=== PATIENT | female | born 1940 | race Caucasian/White ===

== ENCOUNTER 2017-05-17 16:33 | Emergency (ER) | payer MEDICARE ==
[2017-05-17] MEDS ORDERED: Amoxicillin-Clav 875-125 mg Tab PO STA (17:09)
--- NOTE | 2017-05-17 17:10 | C.PDOC ---
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 Patient states, she tripped outside by bank and fell forward hitting ground with face. Patient denies loc, syncope, headache , dizziness, visual changes, focal deficits, neck pain, CP, SOB, dyspnea, diaphoresis, palpitation, abd. pain, N/V, obvious deformity, weakness, sensory or vascular deficits to bilateral upper and lower extremities or any other complaints at this time. At present time, pt is awake, noted swelling, bruising to Left side of face, around eye. (Wanda Schmitz) <Marimar Sorto - Last Filed: 05/17/17 18:34> - HPI History Per: Patient History/Exam Limitations: no limitations Onset/Duration Of Symptoms: Days <Wanda Schmitz - Last Filed: 05/17/17 19:38> - HPI Time Seen by Provider: 05/17/17 16:58 Chief Complaint (Nursing): Trauma Past Medical History Reviewed: Historical Data, Nursing Documentation, Vital Signs - Medical History PMH: Diabetes, Hypothyroidism Family History: States: No Known Family Hx - Social History Hx Tobacco Use: No Hx Alcohol Use: No Hx Substance Use: No <Olga Schmitznika - Last Filed: 05/17/17 19:38> Vital Signs: Last Vital Signs Temp 97.9 F 05/17/17 18:17 Pulse 82 05/17/17 18:17 Resp 18 05/17/17 18:17 BP 138/94 H 05/17/17 18:17 Pulse Ox 98 05/17/17 18:31 Review Of Systems Except As Marked, All Systems Reviewed And Found Negative. Eyes: Negative for: Vision Change Musculoskeletal: Negative for: Neck Pain Skin: Negative for: Rash Neurological: Negative for: Weakness, Numbness <AinsleyWanda - Last Filed: 05/17/17 19:38> Physical Exam - Physical Exam Appears: Well, Non-toxic, No Acute Distress Skin: Warm, Dry, No Rash Head: Normacephalic, Other (left sided diffuse ecchymosis from infraorbital area extended to left zyngoma w/moderate edema. No open wound.) Eye(s): bilateral: Normal Inspection, PERRL, EOMI (no pain or limitation on extraocular movement B/L) Ear(s): Bilateral: Normal Nose: Normal, No Flaring, No Discharge Oral Mucosa: Moist, No Drooling, No Trismus Tongue: Normal Appearing, No Laceration Lips: Normal Appearing, No Laceration Throat: No Erythema, No Exudate, No Drooling Neck: Normal ROM, No Midline Cervical Tenderness, No Paracervical Tenderness, No Step Off Deformity, Supple Chest: Symmetrical, No Deformity, No Tenderness Cardiovascular: Rhythm Regular Respiratory: No Rales, No Rhonchi, No Stridor, No Wheezing Gastrointestinal/Abdominal: Soft, No Tenderness, No Guarding, No Rebound Back: No CVA Tenderness, No Vertebral Tenderness Extremity: Normal ROM, No Tenderness, Capillary Refill (<2 seconds), No Deformity, No Swelling Neurological/Psych: Oriented x3, Normal Speech, Normal Motor, Normal Sensation, Normal Reflexes <Wanda Schmitz - Last Filed: 05/17/17 19:38> ED Course And Treatment - CT Scan/US CT max/face w/o contrast CT/US Interpretation: PROCEDURE: CT MAXILLOFACIAL BONES WITHOUT CONTRAST. HISTORY: injury. COMPARISON: None. TECHNIQUE: Contiguous axial CT images of the maxillofacial bones were obtained. Coronal and sagittal reformats were generated. Radiation dose: Total exam DLP = 712.7 mGy-cm. This CT exam was performed using one or more of the following dose reduction techniques: Automated exposure control, adjustment of the mA and/or kV according to patient size, and/or use of iterative reconstruction technique. FINDINGS: NASAL BONES : Unremarkable. ORBITS: Unremarkable. PARANASAL SINUSES/ MASTOIDS: Mildly displaced fracture at the anterior lateral wall of the left maxillary sinus associated with partial opacification of the sinuses suggestive of hemorrhage. MAXILLA: Unremarkable. MANDIBLE/ TEMPOROMANDIBULAR JOINTS: Unremarkable. SKULL BASE: Unremarkable. TEMPORAL BONES: Middle ears and mastoid grossly unremarkable. OTHER FINDINGS: Soft tissue swelling and subcutaneous stranding with possible small seroma at the left cheek. IMPRESSION: Acute displaced fracture/ fractures at the anterior lateral wall of the left maxillary sinus associated with small hemorrhage. Posttraumatic soft tissue swelling seen at the left cheek. CT C-spine CT/US Interpretation: PROCEDURE: CT Cervical Spine without contrast. HISTORY: Injury. COMPARISON: None available. TECHNIQUE: Axial computed tomography images were obtained of the cervical spine without the use of intravenous contrast. Coronal and sagittal reformatted images were created and reviewed. Radiation dose: Total exam DLP = 524.2 mGy-cm. This CT exam was performed using one or more of the following dose reduction techniques: Automated exposure control, adjustment of the mA and/or kV according to patient size, and/ or use of iterative reconstruction technique. FINDINGS: VERTEBRAE: No fracture. Normal alignment. No destructive bony lesion. DISCS/SPINAL CANAL/ NEURAL FORAMINA: Moderate degenerative disc changes associated with posterior osteophyte formation more prominent at C5-C6 and C6-C7. Moderate to severe narrowing of the intervertebral disc at C6-C7. PARASPINAL SOFT TISSUES: Unremarkable. OTHER FINDINGS: None. IMPRESSION: No evidence of acute displaced fracture or subluxation of the cervical spine. Moderate degenerative disc changes more prominent at C5-C6 and C6-C7. Left maxillary sinus fracture associated with small hemorrhage in the sinus. CT head w/o contrast Other Rad Studies (CT/US): Interpreted By Me, Read By Radiologist CT/US Interpretation: PROCEDURE: CT HEAD WITHOUT CONTRAST. HISTORY: injury. COMPARISON: None available. TECHNIQUE: Axial computed tomography images were obtained through the head/brain without intravenous contrast. Radiation dose: Total exam DLP = 901.01 mGy-cm. This CT exam was performed using one or more of the following dose reduction techniques: Automated exposure control, adjustment of the mA and/or kV according to patient size, and/or use of iterative reconstruction technique. FINDINGS: HEMORRHAGE: No intracranial hemorrhage. BRAIN: No mass effect or edema. No atrophy or chronic microvascular ischemic changes. VENTRICLES: Unremarkable. No hydrocephalus. CALVARIUM: Unremarkable. PARANASAL SINUSES: Mucosal thickening and small air- fluid level at the left maxillary sinus. MASTOID AIR CELLS: Unremarkable as visualized. No inflammatory changes. OTHER FINDINGS: None. IMPRESSION: No evidence of acute intracranial hemorrhage intracranial collection mass effect or midline shift. Air-fluid level at the left maxillary sinus. <Marimar Sorto - Last Filed: 05/17/17 18:34> O2 Sat by Pulse Oximetry: 98 (RA) Pulse Ox Interpretation: Normal - Other Rad Pelvis with B/L hips X-Ray: Interpreted by Me, Viewed By Me Interpretation: no acute fx or dislocation B/l wrist X-Ray: Interpreted by Me, Viewed By Me Interpretation: no acute fx or dislocation - CT Scan/US CT max/face w/o contrast Other Rad Studies (CT/US): Interpreted By Me, Read By Radiologist CT C-spine Other Rad Studies (CT/US): Interpreted By Me, Read By Radiologist Progress Note: On re-evaluation, pt is AAO#3, not in any apparent disterss. Afebrile, hemodynamicaly stable. Head: (+) Left infraorbital ecchymoses, left zygomaticus contusion. No pain or limitation on extraocular movement of Left eye. Neck: Supple, (-) midline tenderness. Abd: benign. back: (-) midline tenderness. Neuorlogicaly intact. Imaging resulst review (+) left maxilar fx with small hemorrhage, no orbital involvement. Results review and discussed with ED attending, no further test recommend. Abx given. Results review and discussed with pt and family. Pt advised OBS 48 hrs for hea dinjury-return to ed immediately if any new changes. Advised on course of ds. ref. to f/u with PMD, ENT in 2-3 days for re-eavl. Pt and family understand, stable for discharge now. <Wanda Schmitz - Last Filed: 05/17/17 19:38> Disposition <Marimar Sorto - Last Filed: 05/17/17 18:34> Counseled Patient/Family Regarding: Studies Performed, Diagnosis, Need For Followup, Rx Given - Disposition Disposition Time: 18:26 <Wanda Schmitz - Last Filed: 05/17/17 19:38> - Disposition Referrals: Armin Marte MD [Medical Doctor] - John Inman MD [Staff Provider] - Disposition: HOME/ ROUTINE Condition: STABLE Additional Instructions: OBSERVE 48 HOURS FOR ANY SIGN OF HEAD INJURY-INTRACTABLE HEADACHE, VOMITING, VISUAL CHANGE, CHANGE IN MENTAL STATUS-RETURN TO ED IMMEDIATELY FOR RE- EVALUATION. KEEP HAD ELEVATED, ICE TO FACIAL CONTUSION DO NOT BLOW NOSTRIL SINUS AFRIN OTC NEED FOR NASAL CONGESTION/BREATHING TAKE ANTIBIOTIC PRESCRIBED, PAIN MEDICATION PRESCRIBED NEED FOLLOW UP WITH PMD, ENT IN 1-2 DAYS FOR RE-EVALUATION. RETURN TO ED IF ANY WORSENING OR NEW CHANGES. PATIENT IS NOT SUITABLE FOR FLIGHT FOR 1 WEEK AND UNTIL CLEARED BY PROMARY DOCTOR Prescriptions: Amoxicillin/Clavulanate [Augmentin 875 MG-125 MG] 1 tab PO BID #14 tab traMADol [Ultram] 50 mg PO TID #7 tab Instructions: Facial Fracture (ED), Head Injury (ED), Wrist Sprain (ED), Hip Contusion (ED) Forms: [employer] (Slovak) - Clinical Impression Clinical Impression: Head injury, Facial fracture, Contusion, hip, Wrist contusion Critical Care Time <Marimar Sorto - Last Filed: 05/17/17 18:34> - Scribe Statement The provider has reviewed the documentation as recorded by the Scribe <Wanda Schmitz - Last Filed: 05/17/17 19:38> - Scribe Statement Malini Webb All medical record entries made by the Scribe were at my direction and personally dictated by me. I have reviewed the chart and agree that the record accurately reflects my personal performance of the history, physical exam, medical decision making, and the department course for this patient. I have also personally directed, reviewed, and agree with the discharge instructions and disposition. (Wanda Schmitz)
--- NOTE | 2017-05-17 18:12 | CT ---
PROCEDURE: CT HEAD WITHOUT CONTRAST. HISTORY: injury COMPARISON: None available. TECHNIQUE: Axial computed tomography images were obtained through the head/brain without intravenous contrast. Radiation dose: Total exam DLP = 901.01 mGy-cm. This CT exam was performed using one or more of the following dose reduction techniques: Automated exposure control, adjustment of the mA and/or kV according to patient size, and/or use of iterative reconstruction technique. FINDINGS: HEMORRHAGE: No intracranial hemorrhage. BRAIN: No mass effect or edema. No atrophy or chronic microvascular ischemic changes. VENTRICLES: Unremarkable. No hydrocephalus. CALVARIUM: Unremarkable. PARANASAL SINUSES: Mucosal thickening and small air-fluid level at the left maxillary sinus. MASTOID AIR CELLS: Unremarkable as visualized. No inflammatory changes. OTHER FINDINGS: None. IMPRESSION: No evidence of acute intracranial hemorrhage intracranial collection mass effect or midline shift. Air-fluid level at the left maxillary sinus.
[2017-05-17 18:21] VITALS: BP 138/94; PULSE 82; RESP 18; TEMP 97.9
--- NOTE | 2017-05-17 18:22 | CT ---
PROCEDURE: CT MAXILLOFACIAL BONES WITHOUT CONTRAST HISTORY: injury COMPARISON: None TECHNIQUE: Contiguous axial CT images of the maxillofacial bones were obtained. Coronal and sagittal reformats were generated. Radiation dose: Total exam DLP = 712.7 mGy-cm. This CT exam was performed using one or more of the following dose reduction techniques: Automated exposure control, adjustment of the mA and/or kV according to patient size, and/or use of iterative reconstruction technique. FINDINGS: NASAL BONES: Unremarkable. ORBITS: Unremarkable. PARANASAL SINUSES/ MASTOIDS: Mildly displaced fracture at the anterior lateral wall of the left maxillary sinus associated with partial opacification of the sinuses suggestive of hemorrhage. MAXILLA: Unremarkable. MANDIBLE/ TEMPOROMANDIBULAR JOINTS: Unremarkable. SKULL BASE: Unremarkable. TEMPORAL BONES: Middle ears and mastoid grossly unremarkable. OTHER FINDINGS: Soft tissue swelling and subcutaneous stranding with possible small seroma at the left cheek IMPRESSION: Acute displaced fracture/ fractures at the anterior lateral wall of the left maxillary sinus associated with small hemorrhage. Posttraumatic soft tissue swelling seen at the left cheek.
--- NOTE | 2017-05-17 18:27 | CT ---
PROCEDURE: CT Cervical Spine without contrast HISTORY: Injury COMPARISON: None available. TECHNIQUE: Axial computed tomography images were obtained of the cervical spine without the use of intravenous contrast. Coronal and sagittal reformatted images were created and reviewed. Radiation dose: Total exam DLP = 524.2 mGy-cm. This CT exam was performed using one or more of the following dose reduction techniques: Automated exposure control, adjustment of the mA and/or kV according to patient size, and/or use of iterative reconstruction technique. FINDINGS: VERTEBRAE: No fracture. Normal alignment. No destructive bony lesion. DISCS/SPINAL CANAL/NEURAL FORAMINA: Moderate degenerative disc changes associated with posterior osteophyte formation more prominent at C5-C6 and C6-C7. Moderate to severe narrowing of the intervertebral disc at C6-C7. PARASPINAL SOFT TISSUES: Unremarkable. OTHER FINDINGS: None. IMPRESSION: No evidence of acute displaced fracture or subluxation of the cervical spine. Moderate degenerative disc changes more prominent at C5-C6 and C6-C7. Left maxillary sinus fracture associated with small hemorrhage in the sinus.
[2017-05-17 18:29] VITALS: O2SAT 98
[2017-05-17] MEDS ORDERED: Amoxicillin-Clav 875-125 mg Tab PO ONE (18:35)
--- NOTE | 2017-05-18 11:25 | RAD ---
PROCEDURE: Radiographs of the pelvis and bilateral hips HISTORY: injury COMPARISON: None. FINDINGS: BONES: Pelvis: No suspicious lytic or blastic changes seen throughout the pelvic ring. Heterotopic calcification or syndesmophyte appears to nearly breakage the right L5 transverse process with posterior superior iliac crest, potentially at the left as well. Right hip:Unremarkable. Left hip:Unremarkable. JOINTS: Right hip: Moderate degenerative sclerosis appreciate the weight-bearing portion of the joint. No fracture dislocation. Left hip: Moderate degenerative sclerosis appreciate the weight-bearing portion of the joint. No fracture dislocation. Sacroiliac Joints: Moderate to severe sacroiliac joint degenerate changes are bilateral and symmetric. Pubic symphysis: Unremarkable. SOFT TISSUES: Surgical clips in the right inguinal region incidentally. OTHER FINDINGS: None. IMPRESSION: Moderate degenerate change seen the bilateral hip joints and are moderate to severe at the bilateral sacroiliac joints. No fracture or dislocation identified throughout the bilateral hip joints. No fracture of the pelvic ring identified or diastasis.
--- NOTE | 2017-05-18 11:29 | RAD ---
PROCEDURE: Bilateral Wrists Radiographs. HISTORY: injury COMPARISON: None. FINDINGS: BONES: No acute fracture is identified at the bilateral wrists with mild articular cortical sclerosis identified diffusely throughout the carpal carpal and carpal metacarpal articulations as well as the radiocarpal joints compatible osteoarthritis. Calcification is also identified in the region of the bilateral triangular fibrocartilages. Diffuse osteopenia suggests an element of osteoporosis. No suspicious lytic or blastic changes. Note is made made of bilateral ulna minus. JOINT SPACES: Included above. SOFT TISSUES: Included above. OTHER FINDINGS: None. IMPRESSION: 1. No acute fracture dislocation is identified bilaterally although degenerate changes are seen on a mild basis throughout the carpal carpal and carpal metacarpal articulations symmetrically. 2. Bilateral ulna minus identified.
== END 2017-05-17 19:15 | disposition home or self-care (01) ==
LOC: C.ER 16:33
DX: S02.40DA Maxillary fracture, left side, initial encounter for closed fracture (principal); S70.02XA Contusion of left hip, initial encounter; S60.212A Contusion of left wrist, initial encounter; W01.0XXA Fall on same level from slipping, tripping and stumbling without subsequent striking against object, initial encounter; Y92.414 Local residential or business street as the place of occurrence of the external cause